=== PATIENT | female | born 1940 | race African-American/Black ===

== ENCOUNTER → 2021-05-04 | Day surgery (SDC) | payer OTHER ==
[2011-09-09 11:13] VITALS: BP 175/63
--- NOTE | 2021-05-05 13:57 | RAD REPORT ---
EXAM DESCRIPTION: US - Breast Core BX w/US Guidance - 05/04/2021 10:27 am CLINICAL HISTORY: N63.11 COMPARISON: Mammogram and ultrasound studies 03/14/2021 TECHNIQUE: The patient presents for ultrasound-guided biopsy of a previously detailed upper-outer qu adrant right breast mass. The ultrasound-guided core biopsy procedure, risks and alternatives were discussed with the patient i n detail. After answering all questions, both oral and written consent were obtained. Time out proced ure was performed. The patient had no contraindicated allergy or medication history. Preliminary imaging identified a lobulated upper-outer quadrant breast mass. Micro and macro lobulati ons were seen. The vague hypoechoic tissue demonstrated on the March 14 ultrasound was seen at the time of the study is a much broader area of hypoechoic tissue in the 9-1 o'clock region of the breast . No one single area was clearly more suspicious or concerning. The mammogram images were not suspici ous for a broad area of abnormal parenchyma. After review of the preliminary images and review of the prior mammography and sonography, the upper- outer quadrant mass was selected for biopsy. The right breast was prepped and draped in the usual sterile fashion. From a(n) inferior approach, sk in and deeper tissues were anesthetized with 1% lidocaine. Under direct sonographic visualization a 1 4 gauge vacuum assisted core biopsy needle was advanced and placed at the margin of the mass. There w ere a total of 3 core biopsies obtained under direct sonographic guidance. The mass did appear to hav e distortion in contour supporting transit of the biopsy needle through the mass. At the conclusion of the procedure a localization clip was placed under sonographic guidance. Post biopsy imaging showed no hematoma or measurable bleeding within the breast. Hemostasis was obtai negrito at the skin site with a sterile bandage placed. Post procedure care and precaution instructions were given to the patient. IMPRESSION: 1. Ultrasound-guided core biopsy was performed of a right breast mass. All obtained mate rial was given to pathology for histologic assessment. 2. Post biopsy localization clip was placed under ultrasound guidance. 3. The vague hypoechoic tissue detailed on the March 14 study was seen is a much broader area of hy poechoic tissue in the 9-1 o'clock region of the right breast. No one focal area had greater suspicio n and no clear mammogram abnormality as a correlate. MRI imaging of the breast would be a good follow -up option; however, the patient apparently is unable to undergo MRI a imaging. If the current biopsy yields a fibroadenoma diagnosis or other benign diagnosis, follow-up sonography of the right breast in 4-6 months would be suggested to monitor this tissue.
== END ==
LOC: FNA 07:46
PROVIDERS: ATTEND Nurse Practitioner Family
DX: N63.11 Unspecified lump in the right breast, upper outer quadrant (principal)
CPT/HCPCS: 19083; 88305